=== PATIENT | male | born 1945 | race Caucasian/White ===

== ENCOUNTER 2016-07-04 19:42 | Emergency (ER) | payer MEDICARE, BC ==
[2016-07-04 19:48] VITALS: BMI 30.2
[2016-07-04 19:58] VITALS: PULSE 70; TEMP 98; O2SAT 100
--- NOTE | 2016-07-04 20:15 | ED PDOC ---
Arrival/HPI - General Chief Complaint: Lower Extremity Problem/Injury Time Seen by Provider: 07/04/16 20:00 Historian: Patient - History of Present Illness Narrative History of Present Illness (Text): 07/04/16 20:11 A 71 year old male, whose past medical history includes multiple sclerosis and chronic lower extremity swelling, presents to the emergency department complaining of worsening bilateral lower extremity since today. Patient notes some skin pealed on his left lower extremity but denies any fever, chills, nausea, vomiting, diarrhea, abdominal pain, chest pain, shortness of breath or any other complaints. Around the same area he had a piece of skin peal recently that healed appropriately. No redness. No foul odor or pus. PMD: Dr. Ch Time/Duration: Other (Today) Symptom Course: Unchanged Quality: Other Context: Home Past Medical History - Provider Review Nursing Documentation Reviewed: Yes - Cardiac Hx Hypertension: Yes - Neurological Hx Multiple Sclerosis: Yes - Psychiatric Hx Substance Use: No Family/Social History - Physician Review Nursing Documentation Reviewed: Yes Family/Social History: No Known Family HX Smoking Status: Never Smoked Hx Alcohol Use: No Hx Substance Use: No Allergies/Home Meds Allergies/Adverse Reactions: Allergies No Known Allergies Allergy (Verified 07/04/16 19:48) Home Medications: Home Meds Medication Instructions Recorded Confirmed Atorvastatin [Lipitor] 40 mg PO DAILY 07/04/16 07/04/16 Folic Acid 1 mg PO DAILY 07/04/16 07/04/16 Gabapentin [Neurontin] 300 mg PO TID 07/04/16 07/04/16 Metoprolol Succinate [Toprol XL] 50 mg PO DAILY 07/04/16 07/04/16 Tamsulosin HCl [Flomax] 0.4 mg PO DAILY 07/04/16 07/04/16 amLODIPine [Norvasc] 5 mg PO DAILY 07/04/16 07/04/16 cloNIDine [clonidine HCl] 0.2 mg PO DAILY 07/04/16 07/04/16 Review of Systems - Physician Review All systems were reviewed & negative as marked: Yes - Review of Systems Constitutional: absent: Fevers, Night Sweats Respiratory: absent: SOB Cardiovascular: absent: Chest Pain Gastrointestinal: absent: Diarrhea, Nausea, Vomiting Musculoskeletal: Other (Bilateral lower extremity swelling) Neurological: Normal, Other (No numbness). absent: Focal Weakness Physical Exam Vital Signs Reviewed: Yes Vital Signs Temp Pulse Resp BP Pulse Ox 07/04/16 19:51 98.0 F 70 17 125/99 H 100 Temperature: Afebrile Blood Pressure: Hypertensive Pulse: Regular Respiratory Rate: Normal Appearance: Positive for: Well-Appearing, Non-Toxic, Comfortable Pain Distress: None Mental Status: Positive for: Alert and Oriented X 3 - Systems Exam Head: Present: Atraumatic, Normocephalic Pupils: Present: PERRL Extroacular Muscles: Present: EOMI Conjunctiva: Present: Normal Mouth: Present: Moist Mucous Membranes Neck: Present: Normal Range of Motion Respiratory/Chest: Present: Clear to Auscultation, Good Air Exchange. No: Respiratory Distress, Accessory Muscle Use Cardiovascular: Present: Regular Rate and Rhythm, Normal S1, S2. No: Murmurs Abdomen: Present: Normal Bowel Sounds. No: Tenderness, Distention, Peritoneal Signs Back: Present: Normal Inspection Upper Extremity: Present: Normal Inspection. No: Cyanosis, Edema Lower Extremity: Present: Edema (+2 pitting edema bilaterally), NORMAL PULSES, Neurovascularly Intact, Other (1 cm superficial skin avulsion in left lower extremity with some seeping fluid, No warmth or pus or redness or tenderness). No: CALF TENDERNESS, Tenderness, Erythema, Temperature Abnormalties Neurological: Present: GCS=15, CN II-XII Intact, Speech Normal Skin: Present: Warm, Dry, Normal Color. No: Rashes Psychiatric: Present: Alert, Oriented x 3, Normal Insight, Normal Concentration Medical Decision Making ED Course and Treatment: 07/04/16 20:11 Impression: A 71 year old male with worsening bilateral lower extremity swelling. Patient notes new superficial ulcer. Differential Diagnosis included but are not limited to: Rule out Cellulitis vs. DVT Plan: -- Duplex lower extremity ultrasound -- Labs -- Blood culture -- Reassess and disposition Progress Notes: 07/04/16 22:22 CBC normal. DVT studies negative. Creatinine nl. Will have patient follow up with his primary care doctor in 1-2 days. Advised to return to the ED if he develops worsening symptoms, fever, shortness of breathe, chest pain or any other concern. - Lab Interpretations Lab Results: 07/04/16 21:30 07/04/16 21:30 Lab Results 07/04/16 21:30: Sodium 137, Potassium 4.5, Chloride 105, Carbon Dioxide 25, Anion Gap 12, BUN 20, Creatinine 0.8, Est GFR ( Amer) > 60, Est GFR (Non- Af Amer) > 60, Random Glucose 138 H, Calcium 10.4, NT-Pro-B Natriuret Pep 81.4 07/04/16 21:30: WBC 10.8 D, RBC 4.78, Hgb 13.6 L, Hct 40.9 L, MCV 85.6, MCH 28.5, MCHC 33.3, RDW 13.6, Plt Count 210, MPV 10.1, Gran % 76.1 H, Lymph % (Auto ) 15.2 L, Garvin % (Auto) 7.9 H, Eos % (Auto) 0.7 L, Baso % (Auto) 0.1, Gran # 8.23 H, Lymph # 1.7, Garvin # 0.9 H, Eos # 0.1, Baso # 0.01 I have reviewed the lab results: Yes Interpretation: All labs normal - RAD Interpretation Radiology Orders: 07/04/16 20:11 DUPLEX LOWER EXTRM VEIN BILAT [US] Stat Negative for DVT as per US Tech Anneliese Rn Acute Dialysis: Radiologist - Scribe Statement The provider has reviewed the documentation as recorded by the Scribcristal Gillespie Provider Scribe Attestation: All medical record entries made by the Scribe were at my direction and personally dictated by me. I have reviewed the chart and agree that the record accurately reflects my personal performance of the history, physical exam, medical decision making, and the department course for this patient. I have also personally directed, reviewed, and agree with the discharge instructions and disposition. Disposition/Present on Arrival - Present on Arrival Any Indicators Present on Arrival: No History of DVT/PE: No History of Uncontrolled Diabetes: No Urinary Catheter: No History of Decub. Ulcer: No History Surgical Site Infection Following: None - Disposition Have Diagnosis and Disposition been Completed?: Yes Diagnosis: Leg swelling Disposition: HOME/ ROUTINE Disposition Time: 22:23 Patient Plan: Discharge Patient Problems: Current Active Problems Problem Status Onset Leg swelling Acute Condition: GOOD Discharge Instructions (ExitCare): Leg Edema (ED) Additional Instructions: Mr Tipton, thank you for letting us take care of you today. Your provider was Dr. Rabines. You were treated for Leg Swelling and Skin Avulsion. The emergency medical care you received today was directed at your acute symptoms. If you were prescribed any medication, please fill it and take as directed. It may take several days for your symptoms to resolve. Return to the Emergency Department if your symptoms worsen, do not improve, or if you have any other problems. Please contact your doctor or call one of the physicians/clinics you have been referred to that are listed on the Patient Visit Information form that is included in your discharge packet. Bring any paperwork you were given at discharge with you along with any medications you are taking to your follow up visit. Our treatment cannot replace ongoing medical care by a primary care provider (PCP) outside of the emergency department. Thank you for allowing the [facility] team to be part of your care today. If you had an X-Ray or CT scan: A Radiologist will review the ED reading if any change in treatment is needed we will contact you. If you had a blood, urine, or wound culture: It will take several days for the results, if any change in treatment is needed we will contact you. If you had an STI test: It will take 48 hours for the results. Please call after 1 week if you have not heard back. Referrals: Levi Ch MD [Staff Provider] - Follow up with primary Forms: [employer] (Italian)
[2016-07-04 21:35] LABS: ADD MANUAL DIFF? NO
[2016-07-04 21:43] LABS: BASO # 0.01 K/mm3 (0.0-2.0); BASO % 0.1 % (0.0-3.0); EOS # 0.1 (0.0-0.7); EOS % 0.7 % (1.5-5.0); GRAN # 8.23 (1.4-6.5); GRAN % 76.1 % (50.0-68.0); HEMATOCRIT 40.9 % (42.0-52.0); LYMPH # 1.7 (1.2-3.4); LYMPH % 15.2 % (22.0-35.0); MEAN CELL VOLUME 85.6 fL (80.0-105.0); MEAN CORPUSCULAR HEMOGLOBIN 28.5 pg (25.0-35.0); MEAN CORPUSCULAR HGB CONC 33.3 g/dl (31.0-37.0); MEAN PLATELET VOLUME 10.1 fl (7.0-11.0); MONO # 0.9 (0.1-0.6); MONO % 7.9 % (1.0-6.0); PLATELET COUNT 210 10^3/uL (120.0-450.0); RED CELL DISTRIBUTION WIDTH 13.6 % (11.5-14.5); WHITE BLOOD COUNT 10.8 10^3/ul (4.5-11.0)
[2016-07-04 21:52] LABS: BLOOD UREA NITROGEN 20 mg/dL (7-21); CALCIUM 10.4 mg/dL (8.4-10.5); CARBON DIOXIDE 25 mmol/L (21-33); CHLORIDE 105 mmol/L (98-107); GFR AFRICAN-AMERICAN > 60; GLUCOSE,RANDOM 138 mg/dL (70-110); POTASSIUM 4.5 mmol/L (3.6-5.0); SODIUM 137 mmol/L (132-148)
[2016-07-04 22:39] VITALS: BP 124/82; RESP 16
--- NOTE | 2016-07-05 09:05 | US ---
HISTORY: Leg pain and swelling. Evaluate for DVT PHYSICIAN(S): Isaac Kraft MD. TECHNIQUE: Duplex sonography and color-flow Doppler with graded compression were used to evaluate the deep venous systems of both lower extremities. The exam is limited by edema and the patient's inability to cooperate. FINDINGS: The visualized deep venous systems of both lower extremities are sonographically normal and compressible. Normal wave forms and augmentation are seen. There is no sonographic evidence for deep venous thrombosis in the visualized segments of both lower extremities. IMPRESSION: No sonographic evidence for deep venous thrombosis in the visualized segments of both lower extremities.
== END 2016-07-04 22:38 | disposition home or self-care (01) ==
LOC: ED 19:42
DX: M79.89 Other specified soft tissue disorders (principal); G35 Multiple sclerosis; I10 Essential (primary) hypertension